=== PATIENT | female | born 1960 | race Caucasian/White ===

== ENCOUNTER 2019-01-31 21:32 | Emergency (ER) | payer MEDICARE, MEDICAID | END 2019-01-31 21:45 | disposition left against medical advice (07) | LOC: ER 21:32 | DX: M79.10 Myalgia, unspecified site (principal); Z53.21 Procedure and treatment not carried out due to patient leaving prior to being seen by health care provider; W18.39XA Other fall on same level, initial encounter; Y93.89 Activity, other specified; Y92.89 Other specified places as the place of occurrence of the external cause; Y99.8 Other external cause status ==

== ENCOUNTER 2022-06-03 22:20 | Emergency (ER) | payer MEDICARE, MEDICAID ==
[~2022-06-03] VITALS: Ht 152.4 cm; Wt 93.2 kg
[2022-06-03 23:15] LABS: BASOPHILS # (AUTO) 0.1 X10'3 (0-0.2); BASOPHILS % (AUTO) 1.5 % (0-1); EOSINOPHILS % (AUTO) 0.5 % (0-6); HEMATOCRIT 42.3 % (35.0-45.0); HEMOGLOBIN 13.5 g/dl (12.0-16.0); MEAN CORPUSCULAR VOLUME 82.7 FL (78-98); NEUTROPHILS # (AUTO) 4.2 X10'3 (1.8-7.7)
[2022-06-03 23:17] LABS: LYMPHOCYTES # (AUTO) 2.1 X10'3 (1.1-4.8); LYMPHOCYTES % (AUTO) 29.8 % (21-51); MEAN CORPUSCULAR HEMOGLOBIN 26.3 PG (27.0-31.0); MEAN CORPUSCULAR HGB CONC 31.8 g/dL (33.0-36.5); MONOCYTES # (AUTO) 0.7 X10'3 (0-0.9); MONOCYTES % (AUTO) 9.7 % (2-12); NEUTROPHILS % (AUTO) 58.5 % (42-75); PLATELET COUNT 248 X10'3 (140-440); RED BLOOD COUNT 5.11 X10'6 (4.20-5.60); RED CELL DISTRIBUTION WIDTH 16.7 % (11.5-14.5); WHITE BLOOD COUNT 7.1 X10'3 (4.5-11.0)
[2022-06-03 23:25] LABS: ALANINE AMINOTRANSFERASE 70 U/L (12-78); ALBUMIN 3.9 G/DL (3.4-5.0); ALBUMIN/GLOBULIN RATIO 1.1 (1.1-1.5); ALKALINE PHOSPHATASE 102 IU/L (46-116); ANION GAP 11 (8-16); ASPARTATE AMINO TRANSFERASE 68 U/L (10-37); BILIRUBIN,TOTAL 1.7 MG/DL (0.1-1.0); BLOOD UREA NITROGEN 19 MG/DL (7-18); BUN/CREATININE RATIO 19.8 (6.6-38.0); CALCIUM 8.8 MG/DL (8.5-10.1); CHLORIDE 100 MMOL/L (99-107); CREATININE 0.96 MG/DL (0.40-0.90); GLUCOSE 111 MG/DL (70-104); LIPASE < 50 U/L (73-393); SODIUM 140 MMOL/L (135-145); TOTAL CARBON DIOXIDE 29.3 MMOL/L (24-32); TOTAL PROTEIN 7.4 G/DL (6.4-8.2); eGFR 59 ML/MIN
[2022-06-03] MEDS ORDERED: normal saline 1000ml 1,000 ML IV ONE ×2 (23:55)
[2022-06-04] MEDS ORDERED: piperacillin/tazo 3.375gm/50ml 50 ML IV SCH
[2022-06-04] MEDS ORDERED: iohexol 350MG/ML 100ml bottle IV ONE (00:07)
--- NOTE | 2022-06-04 00:25 | NUR ---
IV ACCESS OBTAINED, NS BOLUS STARTED ORDERED
[2022-06-04] MEDS ORDERED: HYDROmorphone 1 mg/ml syringe IV ONE (00:30)
[2022-06-04] MEDS ORDERED: ondansetron/PF 4mg/2ml inj IV ONE (00:30)
--- NOTE | 2022-06-04 00:37 | NUR ---
PT TO CT SCAN
--- NOTE | 2022-06-04 01:18 | NUR ---
DR ALDANA MADE AWARE OF PT'S BP AD HR. WE WILL CONTINUE MONITOR SINCE PT IT MAY BE INFECTION.
[2022-06-04] MEDS ORDERED: acetaminophen 1,000mg/100ml IV 100 ML IV ONE (01:20)
--- NOTE | 2022-06-04 02:11 | NUR ---
URINE SAMPLE OBTAINED VIA STRAIGHT CATH.
[2022-06-04 02:20] LABS: URINE HCG NEGATIVE (NEG)
[2022-06-04 02:27] LABS: CLARITY,URINE CLEAR (Clear); COLOR,URINE YELLOW (Yellow); KETONES,URINE NEGATIVE (Neg); LEUKOCYTE ESTERASE ,URINE NEGATIVE (Neg); NITRITES, URINE NEGATIVE (Neg); OCCULT BLOOD,URINE NEGATIVE (Neg); PROTEIN,URINE 100 mg/dl (Neg); UROBILINOGEN,URINE >=8.0 E.U/dL (0.2-1.0)
[2022-06-04 02:28] LABS: GLUCOSE, URINE 100 mg/dl (Neg)
[2022-06-04 02:31] LABS: URINE AMPHETAMINE SCREEN POSITIVE (Neg); URINE BARBITUATE SCREEN NEGATIVE (Neg); URINE BENZODIAZEPINES SCREEN NEGATIVE (Neg); URINE CANNABINOID SCREEN NEGATIVE (Neg); URINE COCAINE SCREEN NEGATIVE (Neg); URINE METHADONE SCREEN NEGATIVE (Neg); URINE PHENCYCLIDINE SCREEN NEGATIVE (Neg)
[2022-06-04 02:40] LABS: UA COLLECTION TYPE STRAIGHT CATH
[2022-06-04 02:44] LABS: RBC,URINE NONE SEEN /HPF (0-2); WBC,URINE 0-4 /HPF (0-4)
[2022-06-04 02:45] LABS: BACTERIA,URINE FEW /HPF (Neg); SQUAMOUS EPITHELIAL CELL,UR FEW /LPF (FEW)
[2022-06-04] MEDS ORDERED: pantoprazole 40MG/NS 100ML BAG 100 ML IV ONE (03:00)
[2022-06-04] MEDS ORDERED: mag hydrox/Alum hydrox/simeth 30ml oral suspension PO ONE (03:00)
[2022-06-04 03:30] VITALS: BP 139/92
--- NOTE | 2022-06-04 04:05 | NUR ---
PATIENT WITH HER FRIEND AT BEDSIDE. STATED SHE WANTS TO GET D/JILL. PT WAS INFORMED ABOUT THE RISKS OF D/C AGAINST MEDICAL ADVICE. MD ALDANA INFORMED. SPOKE TO PATIENT AT [facility]. PT SIGNED [facility] AGAINST MEDICAL ADVICE DOCUMENT. IV ACCESS REMOVED AND PATIENT WALKED OFF IN NO FORM OF DISTRESS WITH HER FRIEND
== END 2022-06-04 04:14 | disposition left against medical advice (07) ==
LOC: ER 22:21
DX: R10.84 Generalized abdominal pain (principal); F15.10 Other stimulant abuse, uncomplicated
CPT/HCPCS: 36415; 71045; 74177; 80053; 80305; 81001; 81025; 83605; 83690; 85025; 87040; 93005; 96361; 96365; 96366; 96368; 96375; 99285; C9113; J0131; J1170; J2405; J2543; J3490; J7030; Q9967

== ENCOUNTER 2022-06-14 12:16 | Inpatient (IN) | payer MEDICARE, MEDICAID ==
[~2022-06-14] VITALS: Ht 152.4 cm; Wt 100.0 kg
[2022-06-14 15:49] LABS: BASOPHILS # (AUTO) 0.1 X10'3 (0-0.2); BASOPHILS % (AUTO) 1.5 % (0-1); EOSINOPHILS # (AUTO) 0.1 X10'3 (0-0.9); EOSINOPHILS % (AUTO) 1.7 % (0-6); HEMATOCRIT 39.8 % (35.0-45.0); HEMOGLOBIN 12.4 g/dl (12.0-16.0); LYMPHOCYTES # (AUTO) 1.6 X10'3 (1.1-4.8); LYMPHOCYTES % (AUTO) 34.1 % (21-51); MEAN CORPUSCULAR HEMOGLOBIN 25.7 PG (27.0-31.0); MEAN CORPUSCULAR HGB CONC 31.3 g/dL (33.0-36.5); MEAN CORPUSCULAR VOLUME 82.2 FL (78-98); MEAN PLATELET VOLUME 8.4 FL (7.4-10.4); MONOCYTES # (AUTO) 0.5 X10'3 (0-0.9); MONOCYTES % (AUTO) 10.4 % (2-12); NEUTROPHILS # (AUTO) 2.4 X10'3 (1.8-7.7); NEUTROPHILS % (AUTO) 52.3 % (42-75); PLATELET COUNT 255 X10'3 (140-440); RED BLOOD COUNT 4.84 X10'6 (4.20-5.60); RED CELL DISTRIBUTION WIDTH 17.3 % (11.5-14.5); WHITE BLOOD COUNT 4.6 X10'3 (4.5-11.0)
[2022-06-14 16:04] LABS: ALANINE AMINOTRANSFERASE 32 U/L (12-78); ALBUMIN 3.4 G/DL (3.4-5.0); ALKALINE PHOSPHATASE 90 IU/L (46-116); ANION GAP 7 (8-16); ASPARTATE AMINO TRANSFERASE 30 U/L (10-37); BILIRUBIN,TOTAL 0.6 MG/DL (0.1-1.0); BLOOD UREA NITROGEN 16 MG/DL (7-18); BUN/CREATININE RATIO 20.5 (6.6-38.0); CALCIUM 8.5 MG/DL (8.5-10.1); CHLORIDE 104 MMOL/L (99-107); CREATININE 0.78 MG/DL (0.40-0.90); GLUCOSE 107 MG/DL (70-104); POTASSIUM 3.9 MMOL/L (3.5-5.1); SODIUM 141 MMOL/L (135-145); TOTAL CARBON DIOXIDE 30.3 MMOL/L (24-32); TOTAL PROTEIN 6.7 G/DL (6.4-8.2); eGFR 75 ML/MIN
[2022-06-14 16:10] LABS: LIPASE 66 U/L (73-393)
[2022-06-14] MEDS ORDERED: HYDROcodone/acetaminophen 5mg/325mg tablet PO PRN (18:45)
[2022-06-14] MEDS ORDERED: magnesium Cl slow-release 64mg tablet PO PRN (18:45)
[2022-06-14] MEDS ORDERED: magnesium 2GM in 50ml NS 50 ML IV PRN (18:45)
[2022-06-14] MEDS ORDERED: potassium CL 10mEq/100ml bag 100 ML IV PRN (18:45)
[2022-06-14] MEDS ORDERED: POTASSIUM BICARB 20meq eff tab 20 MEQ TABLET.EFF PO PRN ×2 (18:45)
[2022-06-14] MEDS ORDERED: ondansetron/PF 4mg/2ml inj IV PRN (18:45)
[2022-06-14] MEDS ORDERED: morphine 2 MG/ML inj. syringe IV PRN (18:45)
[2022-06-14] MEDS ORDERED: acetaminophen 325mg tablet PO PRN ×2 (18:45)
[2022-06-14] MEDS ORDERED: magnesium 4gm in 100ml NS 100 ML IV PRN (18:45)
[2022-06-14 19:00] VITALS: BP 150/117
[2022-06-14] MEDS ORDERED: nicotine 14mg patch - 24hr TD SCH (19:30)
[2022-06-14] MEDS ORDERED: FURO-149 PO (19:47)
--- NOTE | 2022-06-14 19:47 | NUR ---
Patient told ERICKA Lund that she did not want to be admitted and would like to leave. All risks of leaving AMA including were discused with the patient. She ambulated out of the ER w/o problem.
[2022-06-14] MEDS ORDERED: furosemide 40mg/4ml inj IV SCH (20:00)
[2022-06-14] MEDS ORDERED: K and/or MAG REPLACEMENT MC SCH (20:00)
[2022-06-14] MEDS ORDERED: heparin, porcine 5000 units/ml vial SQ SCH (20:00)
[2022-06-14] MEDS ORDERED: temazepam 15mg capsule PO PRN (21:00)
--- NOTE | 2022-06-21 11:38 | NUR ---
[facility] DC follow up: Patient left AMA.
== END 2022-06-14 19:55 | disposition left against medical advice (07) | DRG 293 ==
LOC: ER 12:16 → ED HOLD 18:03
PROVIDERS: ADMIT Internal Medicine; ATTEND Internal Medicine
DX: I50.23 Acute on chronic systolic (congestive) heart failure (principal); F15.10 Other stimulant abuse, uncomplicated; I48.91 Unspecified atrial fibrillation; J44.9 Chronic obstructive pulmonary disease, unspecified; Z53.29 Procedure and treatment not carried out because of patient's decision for other reasons; F17.210 Nicotine dependence, cigarettes, uncomplicated; B19.20 Unspecified viral hepatitis C without hepatic coma; R21 Rash and other nonspecific skin eruption; Z79.01 Long term (current) use of anticoagulants; Z71.6 Tobacco abuse counseling; Z71.51 Drug abuse counseling and surveillance of drug abuser
CPT/HCPCS: 36415; 71045; 80053; 83690; 83880; 84484; 85025; 99285; G0378

== ENCOUNTER 2022-09-06 16:52 | Emergency (ER) | payer MEDICARE, MEDICAID ==
[~2022-09-06] VITALS: Ht 152.4 cm; Wt 86.0 kg
[~2022-09-06 16:52] MED LIST: FURO-149 PO
[2022-09-06 17:31] VITALS: BP 152/111
[2022-09-06 17:59] LABS: BASOPHILS # (AUTO) 0.1 X10'3 (0-0.2); BASOPHILS % (AUTO) 1.2 % (0-1); EOSINOPHILS # (AUTO) 0.1 X10'3 (0-0.9); HEMATOCRIT 40.9 % (35.0-45.0); HEMOGLOBIN 12.8 g/dl (12.0-16.0); LYMPHOCYTES # (AUTO) 1.6 X10'3 (1.1-4.8); LYMPHOCYTES % (AUTO) 24.6 % (21-51); MEAN CORPUSCULAR HEMOGLOBIN 25.2 PG (27.0-31.0); MEAN CORPUSCULAR HGB CONC 31.4 g/dL (33.0-36.5); MEAN CORPUSCULAR VOLUME 80.4 FL (78-98); MEAN PLATELET VOLUME 8.7 FL (7.4-10.4); MONOCYTES # (AUTO) 0.7 X10'3 (0-0.9); NEUTROPHILS # (AUTO) 3.9 X10'3 (1.8-7.7); NEUTROPHILS % (AUTO) 62.2 % (42-75); PLATELET COUNT 243 X10'3 (140-440); RED BLOOD COUNT 5.08 X10'6 (4.20-5.60); RED CELL DISTRIBUTION WIDTH 22.2 % (11.5-14.5); WHITE BLOOD COUNT 6.3 X10'3 (4.5-11.0)
[2022-09-06 18:13] LABS: ALANINE AMINOTRANSFERASE 28 U/L (12-78); ALBUMIN 3.9 G/DL (3.4-5.0); ALBUMIN/GLOBULIN RATIO 1.1 (1.1-1.5); ALKALINE PHOSPHATASE 97 IU/L (46-116); ANION GAP 10 (8-16); ASPARTATE AMINO TRANSFERASE 37 U/L (10-37); BILIRUBIN,TOTAL 0.8 MG/DL (0.1-1.0); BLOOD UREA NITROGEN 19 MG/DL (7-18); BUN/CREATININE RATIO 22.6 (6.6-38.0); CALCIUM 9.6 MG/DL (8.5-10.1); CHLORIDE 102 MMOL/L (99-107); CREATININE 0.84 MG/DL (0.40-0.90); GLUCOSE 92 MG/DL (70-104); POTASSIUM 4.5 MMOL/L (3.5-5.1); SODIUM 141 MMOL/L (135-145); TOTAL CARBON DIOXIDE 29.5 MMOL/L (24-32); TOTAL PROTEIN 7.3 G/DL (6.4-8.2); eGFR 69 ML/MIN
[2022-09-06 18:26] LABS: ANISOCYTOSIS 3+; ELLIPTOCYTES FEW; LARGE PLATELETS FEW; PLATELET ESTIMATE NORMAL
== END 2022-09-06 20:56 | disposition left against medical advice (07) ==
LOC: ER 16:53
DX: R07.9 Chest pain, unspecified (principal); Z53.21 Procedure and treatment not carried out due to patient leaving prior to being seen by health care provider
CPT/HCPCS: 36415; 71045; 80053; 83880; 84484; 85008; 85025; 93005; A4615